=== PATIENT | female | born 1980 | race American Indian/Alaskan Native ===

== ENCOUNTER 2018-09-18 22:16 | Observation (INO) | payer OTHER ==
--- NOTE | 2018-09-18 23:29 | Emergency Department Report ---
ED General Adult HPI - General Chief complaint: Weakness Stated complaint: BLOOD LOW Time Seen by Provider: 09/18/18 23:17 Source: patient Mode of arrival: Ambulatory Limitations: No Limitations - History of Present Illness Initial comments: Patient is 37 years old female with no significant past medical history except for metrorrhagia. Patient presented to the emergency room complaining of generalized weakness for the last week. Patient stated that she's been having heavy periods. She went to her primary care physician today and he checked her hemoglobin and she was told that is 4.4 and advised to come to the emergency room. Patient denied any chest pain, shortness of breath or dizziness. Patient was admitted in February of last year for the same complaint found to have fibroids patient was to follow-up with his doctor son Donny but patient did not follow- up because of her father sickness. Severity scale (0 -10): 6 - Related Data Home Medications Medication Instructions Recorded Confirmed Last Taken No Known Home Medications [No 09/18/18 09/18/18 Unknown Reported Home Medications] Allergies Allergy/AdvReac Type Severity Reaction Status Date / Time No Known Allergies Allergy Unverified 10/05/13 10:20 ED Review of Systems ROS: Stated complaint: BLOOD LOW Other details as noted in HPI Comment: All other systems reviewed and negative Constitutional: denies: chills, fever Respiratory: denies: cough, orthopnea, shortness of breath, SOB with exertion, SOB at rest, wheezing Cardiovascular: denies: chest pain, palpitations Gastrointestinal: denies: abdominal pain, nausea, vomiting, diarrhea, constipation, hematemesis, melena, hematochezia Genitourinary: abnormal menses. denies: hematuria Neurological: weakness (generalized). denies: headache, numbness, paresthesias, confusion, abnormal gait ED Past Medical Hx - Past Medical History Previous Medical History?: Yes Hx Hypertension: No Hx CVA: No Hx Heart Attack/AMI: No Hx Congestive Heart Failure: No Hx Diabetes: No Hx Deep Vein Thrombosis: No Hx Pulmonary Embolism: No Hx GERD: No Hx Liver Disease: No Hx Renal Disease: No Hx of Cancer: No Hx Sickle Cell Disease: No Hx Arthritis: No Hx Headaches / Migraines: No Hx Seizures: No Hx Kidney Stones: No Hx Psychiatric Treatment: No Hx Asthma: No Hx COPD: No Hx Tuberculosis: No Hx Dementia: No Hx HIV: No Additional medical history: Anemia fibroids - Surgical History Past Surgical History?: Yes Hx Coronary Stent: No Hx Open Heart Surgery: No Hx Pacemaker: No Hx Internal Defibrillator: No Hx Cholecystectomy: No Hx Appendectomy: No Hx Breast Surgery: No Additional Surgical History: Tubal Ligation - Social History Smoking Status: Never Smoker Substance Use Type: None - Medications Home Medications: Home Medications Medication Instructions Recorded Confirmed Last Taken Type No Known Home Medications [No 09/18/18 09/18/18 Unknown History Reported Home Medications] ED Physical Exam - General Limitations: No Limitations General appearance: alert, in no apparent distress - Head Head exam: Present: atraumatic, normocephalic, normal inspection - Eye Eye exam: Present: normal appearance, other (pale) - ENT ENT exam: Present: normal exam, normal orophraynx, mucous membranes moist - Neck Neck exam: Present: normal inspection, full ROM. Absent: tenderness, meningismus, lymphadenopathy, thyromegaly - Respiratory Respiratory exam: Present: normal lung sounds bilaterally. Absent: respiratory distress, wheezes, rales, rhonchi, stridor, chest wall tenderness, accessory muscle use, decreased breath sounds, prolonged expiratory - Cardiovascular Cardiovascular Exam: Present: regular rate, normal rhythm, normal heart sounds - GI/Abdominal GI/Abdominal exam: Present: soft, normal bowel sounds. Absent: distended, tenderness, guarding, rebound, rigid, organomegaly, mass, bruit, pulsatile mass, hernia - Extremities Exam Extremities exam: Present: normal inspection, full ROM, normal capillary refill. Absent: tenderness, pedal edema, joint swelling, calf tenderness - Back Exam Back exam: Present: normal inspection, full ROM. Absent: tenderness, CVA tenderness (R), CVA tenderness (L), muscle spasm, paraspinal tenderness, vertebral tenderness - Neurological Exam Neurological exam: Present: alert, oriented X3, CN II-XII intact, normal gait, reflexes normal - Skin Skin exam: Present: warm, intact, normal color ED Course Vital Signs 09/18/18 09/18/18 09/18/18 22:25 22:30 23:28 Temperature 98.6 F 98.6 F Pulse Rate 77 79 77 Respiratory 16 18 10 L Rate Blood Pressure 122/40 122/40 Blood Pressure 122/40 [Right] O2 Sat by Pulse 100 100 99 Oximetry 09/18/18 09/18/1819 23:30 23:45 00:00 Temperature Pulse Rate 79 75 76 Respiratory 8 L 16 17 Rate Blood Pressure 112/53 112/56 99/47 Blood Pressure [Right] O2 Sat by Pulse 100 100 99 Oximetry 09/19/18 09/19/18 09/19/18 00:15 00:16 00:30 Temperature Pulse Rate 69 74 67 Respiratory 15 17 17 Rate Blood Pressure 100/46 100/46 102/42 Blood Pressure [Right] O2 Sat by Pulse 100 99 100 Oximetry 09/19/18 09/19/18 09/19/18 00:45 01:00 01:15 Temperature Pulse Rate 65 68 78 Respiratory 16 15 20 Rate Blood Pressure 105/41 94/40 86/42 Blood Pressure [Right] O2 Sat by Pulse 100 99 98 Oximetry 09/19/18 01:30 Temperature Pulse Rate 69 Respiratory 17 Rate Blood Pressure 88/42 Blood Pressure [Right] O2 Sat by Pulse 99 Oximetry ED Medical Decision Making - Lab Data Result diagrams: 09/18/18 22:59 09/18/18 22:59 - Medical Decision Making Patient found to have a hemoglobin of 6.5. I wrote for 1 unit of PRBC. I discussed the patient is Dr. Qiu, who agreed to admit the patient to Medical service Critical Care Time: Yes Critical care time in (mins) excluding proc time.: 30 Critical care attestation.: If time is entered above; I have spent that time in minutes in the direct care of this critically ill patient, excluding procedure time. ED Disposition Clinical Impression: Symptomatic anemia, Acute blood loss anemia, Abnormal uterine bleeding (AUB) Disposition: OP ADMIT IP TO THIS HOSP Is pt being admited?: Yes Condition: Stable
[2018-09-18 23:49] LABS: Partial Thromboplastin Time 29.7 Sec. (24.2-36.6)
[2018-09-18 23:58] LABS: BUN/Creatinine Ratio 14; Blood Urea Nitrogen 7 mg/dL (7-17); Calcium 8.6 mg/dL (8.4-10.2); Hemolysis Index 4
[2018-09-19 00:12] LABS: Mean Corpuscular HGB Conc 28 % (30-34); Platelet Count 525 K/mm3 (140-440); Red Blood Count 3.61 M/mm3 (3.65-5.03)
[2018-09-19 00:33] LABS: Hematocrit 23.3 % (30.3-42.9); Hemoglobin 6.5 gm/dl (10.1-14.3); Mean Corpuscular Volume 65 fl (79-97); Red Cell Distribution Width 24.6 % (13.2-15.2)
[2018-09-19] MEDS ORDERED: NACL 0.9% 500 ML 500 ML IV ONE (01:30)
[2018-09-19] MEDS ORDERED: TYLENOL PO PRN (02:41)
[2018-09-19] MEDS ORDERED: ZOFRAN IV PRN (02:41)
[2018-09-19] MEDS ORDERED: NACL 0.9% 500 ML 500 ML ONE (03:50)
--- NOTE | 2018-09-19 04:34 | History and Physical Report ---
CHIEF COMPLAINT: Weakness. HISTORY OF PRESENTING ILLNESS: The patient is a 37-year-old female who has past medical history of anemia, fibroid, and heavy menstrual bleeding, presenting with generalized weakness going on for about one week. The patient said that she has been having heavy periods during her menstrual cycle and went to her primary care doctor yesterday, being 09/18/2018. She was evaluated and told that her hemoglobin was as low as 4.4 and she was advised to come to the Emergency Room. There was no history of shortness of breath or dizziness. There was also no history of chest pain, nausea, or vomiting. The patient states she had similar symptom in February of 2017 and was told that she has fibroid and was asked to follow up with a table lever operator , but she states she has not been able to do so because of her father's sickness. The patient denies history of fever. PAST MEDICAL HISTORY: Pertinent for fibroid lesion. Also, the patient has past medical history of anemia and menorrhagia. PAST SURGICAL HISTORY: Pertinent for tubal ligation. FAMILY HISTORY: Noncontributory. SOCIAL HISTORY: The patient does not smoke, does not drink alcohol, and does not use illicit drugs. MEDICATIONS: The patient is not on any medication. ALLERGIES: There are no known drug allergies. REVIEW OF SYSTEMS: CONSTITUTIONAL: There is no fever, no chills, no diaphoresis. HEENT: There is no headache or sore throat. CARDIOVASCULAR SYSTEM: There is no chest pain or orthopnea. RESPIRATORY SYSTEM: There is no shortness of breath or cough. GASTROINTESTINAL SYSTEM: There is no nausea, no vomiting. No abdominal pain, diarrhea, or constipation. NEUROLOGICAL SYSTEM: There is no numbness, no dizziness, no altered mental status, but there is generalized weakness. MUSCULOSKELETAL SYSTEM: There is no joint pain or swelling. DERMATOLOGICAL SYSTEM: There is no skin rash or itching. GENITOURINARY SYSTEM: There is no dysuria, hematuria, or flank pain, but there is vaginal bleeding as part of the patient's menstrual bleeding, still going on currently. Rest of system review is normal. PHYSICAL EXAMINATION: GENERAL: At the time of exam, the patient was found to be alert, oriented x 3, and not in acute distress. VITAL SIGNS: Showed temperature of 98.6 degrees Fahrenheit, pulse of 77, respirations 16, blood pressure 122/40, O2 sat of 100% on room air. HEENT: Showed pupils to be equal, round, reactive to light and accommodation. Extraocular muscles were intact. NECK: Supple with no JVD or carotid bruit. CARDIOVASCULAR: Showed normal first and second heart sounds with no gallops or murmurs. RESPIRATORY SYSTEM: Showed good air entry on both sides of the lungs with no abnormal breath sounds. GASTROINTESTINAL SYSTEM: Showed abdomen to be full, soft, nontender with no organomegaly or rigidity. NEUROLOGICAL: Showed no focal deficits. MUSCULOSKELETAL SYSTEM: Showed no joint swelling or tenderness. DERMATOLOGICAL SYSTEM: Showing no skin rash. GENITOURINARY SYSTEM: Showing no costovertebral angle tenderness. PERTINENT LABORATORY AND IMAGING STUDIES: The patient did not have any imaging studies done at this time. Lab results show CBC with normal white count, low hemoglobin of 6.5, and low hematocrit of 23.3 with low MCV of 65 and elevated RDW of 26.6 and elevated platelet count of 525. The patient's coagulation studies were unremarkable. Chemistry showed low potassium of 3.2, otherwise rest of chemistry was unremarkable. DIAGNOSES: 1. Anemia. 2. Menorrhagia. PLAN OF ACTION: 1. The patient will be placed on observation in the medical ambrocio. 2. The patient will have gynecological consult with Dr. Grayson Smith for management of menorrhagia and secondary anemia. 3. The patient will have additional transfusion of 1 unit of blood to the one that is currently going on in the Emergency Room. 4. The patient will be on Tylenol 650 mg by mouth every 4 hours as needed for fever and headache. 5. The patient will have post transfusion H and H done. 6. The patient will be on IV Zofran 4 mg every 8 hours as needed for nausea and vomiting. 7. The patient's DVT prophylaxis will be through sequential compressive device. 8. The patient's diet will be regular diet. JOB# [id number] OCN/NTS JAMSHIDD
[2018-09-19 05:28] LABS: Anisocytosis 1+; Eosinophils % (Manual) 0 % (0.0-4.3); Hypochromasia 2+; Large Platelets Few; Total Cells Counted 100
[2018-09-19 05:29] LABS: Ovalocytes Few; Platelet Estimate Appears Increased
[2018-09-19 08:12] LABS: Hematocrit 28.6 % (30.3-42.9); Hemoglobin 8.7 gm/dl (10.1-14.3)
--- NOTE | 2018-09-19 13:43 | Ultrasound Report ---
ULTRASOUND PELVIC COMPLETE History: Vaginal bleeding. Technique: Transabdominal ultrasound with color Doppler interrogation. Findings: The uterus is anteverted and mildly enlarged. The uterus measures 13.5 x 8.9 x 8.4 cm. A large submucosal fibroid in the anterior wall measures 6.0 x 5.1 x 5.3 cm. The endometrial stripe is displaced posteriorly and appears to measure 11 mm. No obvious endometrial mass or fluid collection. The cervix is partially obscured. The ovaries are normal size, contour and echotexture. No adnexal cyst or mass. No pelvic fluid collection. IMPRESSION: Large submucosal uterine fibroid in the anterior wall as described. No significant change is demonstrated since 03/20/18.
--- NOTE | 2018-09-19 14:46 | Consultation ---
History of Present Illness Consult date: 09/19/18 Requesting physician: KARLY GIMENEZ Reason for consult: menorrhagia, pelvic mass History of present illness: Pt is a 37yo BF LMP 09/16/18 with no significant past medical history except for metrorrhagia and uterine fibroids. She presented to the emergency room complaining of generalized weakness for the last week after having prolonged heavy vaginal bleeding. She went to her primary care physician and he checked her hemoglobin and she was told that is 4.4 and advised her to come to the emergency room. She denied any chest pain, shortness of breath or dizziness. She was admitted in February of last year for the same complaint found to have uterine fibroids but she did not follow-up because of her father sickness. Today her pelvic u/s showed the uterus measured 13.5 x 8.9 x 8.4cm with a large anterior wall fibroid 6.0 x 5.1 x 5.3cm. She has since been transfused and is feeling much better with her H/H improving from 6.5/23.3 to 8.7/28.6 I have been consulted to further evaluate her uterine fibroids. 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 Family/Genetic History: none Social history: no significant social history, single - Obstetrical History : 2 Medications and Allergies Allergies Allergy/AdvReac Type Severity Reaction Status Date / Time No Known Allergies Allergy Unverified 10/05/13 10:20 Home Medications Medication Instructions Recorded Confirmed Last Taken Type No Known Home Medications [No 09/18/18 09/18/18 Unknown History Reported Home Medications] Active Meds: Active Medications Acetaminophen (Tylenol) 650 mg PO Q4H PRN PRN Reason: Fever >101 Ondansetron HCl (Zofran) 4 mg IV Q8H PRN PRN Reason: Nausea And Vomiting Review of Systems All systems: negative - Vital Signs Vital signs: Vital Signs Temp Pulse Resp BP Pulse Ox 98.6 F 77 16 122/40 100 09/18/18 22:25 09/18/18 22:25 09/18/18 22:25 09/18/18 22:25 09/18/18 22:25 Temp Pulse Resp BP Pulse Ox 98.7 F 77 18 104/33 100 09/19/18 11:42 09/19/18 11:42 09/19/18 11:42 09/19/18 11:42 09/19/18 11:42 - Physical Exam Breasts: Positive: deferred Abdomen: Positive: normal appearance, soft Uterus: Positive: enlarged Results Result Diagrams: 09/19/18 08:03 09/18/18 22:59 Abnormal lab results 09/18/18 09/18/18 09/18/18 Range/Units 22:59 22:59 22:59 RBC 3.61 L (3.65-5.03) M/mm3 Hgb 6.5 L (10.1-14.3) gm/dl Hct 23.3 L (30.3-42.9) % MCV 65 L (79-97) fl MCH 18 L (28-32) pg MCHC 28 L (30-34) % RDW 24.6 H (13.2-15.2) % Plt Count 525 H (140-440) K/mm3 Potassium 3.2 L (3.6-5.0) mmol/L Creatinine 0.5 L (0.7-1.2) mg/dL Crossmatch See Detail 09/19/18 Range/Units 08:03 RBC (3.65-5.03) M/mm3 Hgb 8.7 L (10.1-14.3) gm/dl Hct 28.6 L (30.3-42.9) % MCV (79-97) fl MCH (28-32) pg MCHC (30-34) % RDW (13.2-15.2) % Plt Count (140-440) K/mm3 Potassium (3.6-5.0) mmol/L Creatinine (0.7-1.2) mg/dL Crossmatch All other labs normal. Ultrasound: report reviewed Assessment and Plan - Patient Problems (1) Symptomatic anemia Onset Date: 09/19/18 Current Visit: Yes Status: Acute Plan to address problem: A: Symptomatic anemia - most likely due to menorrhagia Menorrhagia - most likely due to uterine fibroids Uterine fibroids P: Agree with admission for blood transfusion Discussed several treatment options with pt She will follow up in the office for a Pap, endometrial biopsy and possib le Myomectomy Follow up in the office in 1 week after discharge (2) Uterine fibroid Onset Date: 09/19/18 Current Visit: No Status: Chronic Qualifiers: Uterine leiomyoma location: intramural and submucous Qualified Code(s): D25.1 - Intramural leiomyoma of uterus; D25.0 - Submucous leiomyoma of uterus (3) Menorrhagia Onset Date: 09/19/18 Current Visit: No Status: Chronic
[2018-09-20 17:16] VITALS: BP 101/52
--- NOTE | 2018-09-20 17:52 | Discharge Summary ---
Providers - Providers Date of Admission: 09/19/18 02:33 Attending physician: KARLY GIMENEZ MD 09/19/18 06:35 Consult to Physician [CONS] Routine Comment: Consulting Provider: UMANG LEWIS Physician Instructions: Reason For Exam: MENORRHAGIA WITH SECONDARY ANEMIA Primary care physician: BETTINA ORTEGA Hospitalization Condition: Stable Hospital course: 37F who pw generalized weakness and menorrhagia. -she was admitted and transfused 2 units prbc, and given iron supplement -she was seen by [facility] [employer] [facility] , for uterine fibroids , is to fup with them outpatient for a Pap, endometrial biopsy and possible Myomectomy Diagnosis acute blood loss Symptomatic anemia Uterine fibroid Menorrhagia Disposition: TO HOME OR SELFCARE Time spent for discharge: 33 mins Core Measure Documentation - Palliative Care Palliative Care/ Comfort Measures: Not Applicable - Core Measures Any of the following diagnoses?: none Exam - Constitutional Vitals: Temp Pulse Resp BP Pulse Ox 98.6 F 69 18 101/52 99 09/20/18 16:56 09/20/18 16:56 09/20/18 16:56 09/20/18 16:56 09/20/18 16:56 General appearance: Present: no acute distress, well-nourished - EENT Eyes: Present: PERRL ENT: hearing intact, clear oral mucosa - Neck Neck: Present: supple, normal ROM - Respiratory Respiratory effort: normal Respiratory: bilateral: CTA - Cardiovascular Heart Sounds: Present: S1 & S2. Absent: rub, click - Extremities Extremities: pulses symmetrical, No edema Peripheral Pulses: within normal limits - Abdominal General gastrointestinal: Present: soft, non-tender, non-distended, normal bowel sounds Female genitourinary: Present: normal - Integumentary Integumentary: Present: clear, warm, dry - Musculoskeletal Musculoskeletal: gait normal, strength equal bilaterally - Psychiatric Psychiatric: appropriate mood/affect, intact judgment & insight - Neurologic Neurologic: CNII-XII intact, moves all extremities Plan Follow up with: BETTINA ORTEGA DO [Primary Care Provider] - 3-5 Days Prescriptions: Ferrous Gluconate 324 mg PO DAILY #30 tablet
== END 2018-09-20 18:48 | disposition home or self-care (01) ==
LOC: ED 22:16 → 3A 09-19 02:33
PROVIDERS: ADMIT Internal Medicine; ATTEND Internal Medicine
DX: D62 Acute posthemorrhagic anemia (principal); D64.9 Anemia, unspecified; N93.8 Other specified abnormal uterine and vaginal bleeding; N92.0 Excessive and frequent menstruation with regular cycle; D25.9 Leiomyoma of uterus, unspecified
CPT/HCPCS: 36415; 36430; 76856; 80048; 84703; 85007; 85018; 85025; 85610; 85730; 86850; 86900; 86901; 86920; 99291; 99406; G0378; J7040; P9016

== ENCOUNTER 2019-02-16 18:46 | Emergency (ER) | payer OTHER ==
[2019-02-16] MEDS ORDERED: ZOFRAN IV ONE (18:56)
[2019-02-16 19:00] VITALS: BP 118/82
--- NOTE | 2019-02-16 19:02 | Event Note ---
ED Screening Note Date of service: 02/16/19 Time: 19:00 ED Screening Note: 38 y/o female comes in for pelvic pain. History of fibroids and vaginal bleeding. This initial assessment/diagnostic orders/clinical plan/treatment(s) is/are subject to change based on patients health status, clinical progression and re- assessment by fellow clinical providers in the ED. Further treatment and workup at subsequent clinical providers discretion. Patient/guardian urged not to elope from the ED as their condition may be serious if not clinically assessed and managed. Initial orders include: <PAXTON YANES - Last Filed: 02/16/19 18:56> ED Screening Note: A physician and/or other qualified medical personnel has recommended that the patient receive further examination and/or treatment beyond their Medical Screening Exam. The risks and benefits were explained. The patient was informed of their right to emergency care. Patient left before final disposition of their medical condition. This note has been generated by me, Dr. Jean Xiao III, MD, the [facility] for the emergency department. I have not seen this patient personally. <JEAN XIAO - Last Filed: 02/21/19 08:48>
== END 2019-02-16 19:08 | disposition left against medical advice (07) ==
LOC: ED 18:46
DX: R10.2 Pelvic and perineal pain (principal); Z98.51 Tubal ligation status
CPT/HCPCS: 99281

== ENCOUNTER 2019-03-08 16:32 | Emergency (ER) | payer OTHER ==
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
[2019-03-08] MEDS ORDERED: AUGMENTIN 875 MG PO ONE (18:56)
[2019-03-08] MEDS ORDERED: ULTRAM PO ONE (18:56)
[2019-03-08] MEDS ORDERED: BOOSTRIX IM ONE (18:56)
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
[2019-03-08 20:13] VITALS: BP 117/63
== END 2019-03-08 20:05 | disposition home or self-care (01) ==
LOC: ED 16:32
DX: S61.451A Open bite of right hand, initial encounter (principal); Z21 Asymptomatic human immunodeficiency virus [HIV] infection status; Z98.51 Tubal ligation status; W50.3XXA Accidental bite by another person, initial encounter; Y93.89 Activity, other specified; Y92.098 Other place in other non-institutional residence as the place of occurrence of the external cause; Y99.8 Other external cause status
CPT/HCPCS: 90471; 90715

== ENCOUNTER 2021-07-11 20:33 | Emergency (ER) | payer OTHER ==
--- NOTE | 2021-07-11 23:34 | Emergency Department Report ---
ED General Adult HPI - General Chief complaint: Dizziness Stated complaint: SENT PCP Time Seen by Provider: 07/11/21 23:01 Source: patient Mode of arrival: Ambulatory Limitations: No Limitations - History of Present Illness Initial comments: Patient 40-year-old female with history of chronic anemia due to fibroids. States she called her PCP today and was advised to come in the ED for blood transfusion. Patient states history of just blood transfusion 1-2 times a year related to anemia secondary to heavy menses associated with fibroids. 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 However has not had fibroidectomy planning to do procedure in coming year. Patient states feeling of fatigue, denies shortness of breath, intermittent dizziness, there is no nausea vomiting or shortness of breath. Patient currently not on supportive therapies. Last menstrual period 3 weeks ago - Related Data Previous Rx's Medication Instructions Recorded Last Taken Type Ferrous Gluconate [Ferrous 324 mg PO DAILY #30 tablet 09/20/18 Unknown Rx Gluconate 324 MG] Amoxicillin/Potassium Clav 1 each PO BID 10 Days #20 tablet 03/08/19 Unknown Rx [Augmentin 875-125 Tablet] Dolutegravir [Tivicay] 50 mg PO DAILY #30 tablet 03/08/19 Unknown Rx Emtricitabine/Tenofovir (Tdf) 2 each PO DAILY #60 tablet 03/08/19 Unknown Rx [Truvada 100 mg-150 mg Tablet] Neomycn/Bacitrc/Polymyx/Pramox 1 applicatio TP BID 10 Days #1 tube 03/08/19 Unknown Rx [Neosporin + Pain Relief Oint] traMADoL [Ultram] 50 mg PO Q6HR PRN #12 tablet 03/08/19 Unknown Rx Allergies Allergy/AdvReac Type Severity Reaction Status Date / Time No Known Allergies Allergy Unverified 10/05/13 10:20 ED Review of Systems ROS: Stated complaint: SENT PCP Other details as noted in HPI Constitutional: denies: chills, fever Eyes: denies: eye pain, eye discharge, vision change ENT: denies: ear pain, throat pain Respiratory: denies: cough, shortness of breath, wheezing Cardiovascular: denies: chest pain, palpitations Endocrine: no symptoms reported Gastrointestinal: denies: abdominal pain, nausea, vomiting, diarrhea Genitourinary: abnormal menses. denies: urgency, dysuria, frequency, hematuria, discharge Musculoskeletal: denies: back pain, joint swelling, arthralgia Skin: denies: rash, lesions Neurological: weakness, vertigo. denies: headache Psychiatric: denies: anxiety, depression Hematological/Lymphatic: denies: easy bleeding, easy bruising ED Past Medical Hx - Past Medical History Previous Medical History?: Yes Hx Hypertension: No Hx CVA: No Hx Heart Attack/AMI: No Hx Congestive Heart Failure: No Hx Diabetes: No Hx Deep Vein Thrombosis: No Hx Pulmonary Embolism: No Hx GERD: No Hx Liver Disease: No Hx Renal Disease: No Hx Sickle Cell Disease: No Hx Arthritis: No Hx Headaches / Migraines: No Hx Seizures: No Hx Kidney Stones: No Hx Psychiatric Treatment: No Hx Asthma: No Hx COPD: No Hx Tuberculosis: No Hx Dementia: No Hx HIV: No Additional medical history: Anemia fibroids - Surgical History Past Surgical History?: Yes Hx Coronary Stent: No Hx Open Heart Surgery: No Hx Pacemaker: No Hx Internal Defibrillator: No Hx Cholecystectomy: No Hx Appendectomy: No Hx Breast Surgery: No Additional Surgical History: Tubal Ligation - Social History Smoking Status: Never Smoker Substance Use Type: Alcohol - Medications Home Medications: Home Medications Medication Instructions Recorded Confirmed Last Taken Type Ferrous Gluconate [Ferrous 324 mg PO DAILY #30 tablet 09/20/18 Unknown Rx Gluconate 324 MG] Amoxicillin/Potassium Clav 1 each PO BID 10 Days #20 tablet 03/08/19 Unknown Rx [Augmentin 875-125 Tablet] Dolutegravir [Tivicay] 50 mg PO DAILY #30 tablet 03/08/19 Unknown Rx Emtricitabine/Tenofovir (Tdf) 2 each PO DAILY #60 tablet 03/08/19 Unknown Rx [Truvada 100 mg-150 mg Tablet] Neomycn/Bacitrc/Polymyx/Pramox 1 applicatio TP BID 10 Days #1 tube 03/08/19 Unknown Rx [Neosporin + Pain Relief Oint] traMADoL [Ultram] 50 mg PO Q6HR PRN #12 tablet 03/08/19 Unknown Rx ED Physical Exam - General Limitations: No Limitations General appearance: alert, in no apparent distress - Head Head exam: Present: normocephalic, normal inspection - Eye Eye exam: Present: normal appearance, PERRL, EOMI. Absent: conjunctival injection, nystagmus Pupils: Present: normal accommodation - ENT ENT exam: Present: normal orophraynx, mucous membranes moist - Neck Neck exam: Present: normal inspection, full ROM. Absent: tenderness - Respiratory Respiratory exam: Present: normal lung sounds bilaterally. Absent: respiratory distress, wheezes, stridor - Cardiovascular Cardiovascular Exam: Present: regular rate, normal rhythm, normal heart sounds. Absent: systolic murmur, diastolic murmur, rubs, gallop - GI/Abdominal GI/Abdominal exam: Present: soft, normal bowel sounds. Absent: distended, tenderness, guarding, rebound, rigid, bruit, hernia - Rectal Rectal exam: Present: deferred - External exam: Present: other (deferred ) - Extremities Exam Extremities exam: Present: full ROM, normal capillary refill. Absent: tenderness - Back Exam Back exam: Present: normal inspection, full ROM. Absent: CVA tenderness (R), CVA tenderness (L) - Neurological Exam Neurological exam: Present: alert, oriented X3, CN II-XII intact, normal gait - Expanded Neurological Exam Expanded Patient oriented to: Present: person, place, time Best Eye Response ([place]): (4) open spontaneously Best Motor Response ([place]): (6) obeys commands Best Verbal Response ([place]): (5) oriented [place] Total: 15 - Psychiatric Psychiatric exam: Present: normal affect, normal mood - Skin Skin exam: Present: warm, dry, intact, normal color. Absent: rash ED Course Vital Signs 07/11/21 07/12/21 21:36 00:20 Temperature 98.2 F 98.3 F Pulse Rate 83 61 Respiratory 18 16 Rate Blood Pressure 133/57 Blood Pressure 124/46 [Left] O2 Sat by Pulse 98 100 Oximetry ED Medical Decision Making - Lab Data Result diagrams: 07/11/21 23:10 07/11/21 23:10 Labs 07/11/21 07/11/21 07/11/21 23:10 23:10 23:10 WBC 7.5 RBC 4.02 Hgb 7.5 L Hct 26.8 L MCV 67 L MCH 19 L MCHC 28 L RDW 25.7 H Plt Count 378 Add Manual Diff Complete Total Counted 100 Seg Neuts % (Manual) 47.0 Lymphocytes % (Manual) 42.0 H Monocytes % (Manual) 5.0 Eosinophils % (Manual) 6.0 H Nucleated RBC % Not Reportable Seg Neutrophils # Man 3.5 Band Neutrophils # 0.0 Lymphocytes # (Manual) 3.2 Abs React Lymphs (Man) 0.0 Monocytes # (Manual) 0.4 Eosinophils # (Manual) 0.5 H Basophils # (Manual) 0.0 Metamyelocytes # 0.0 Myelocytes # 0.0 Promyelocytes # 0.0 Blast Cells # 0.0 WBC Morphology Not Reportable Hypersegmented Neuts Not Reportable Hyposegmented Neuts Not Reportable Hypogranular Neuts Not Reportable Smudge Cells Not Reportable Toxic Granulation Not Reportable Toxic Vacuolation Not Reportable Dohle Bodies Not Reportable Pelger-Huet Anomaly Not Reportable [place] Rods Not Reportable Platelet Estimate Consistent w auto Clumped Platelets Not Reportable Plt Clumps, EDTA Not Reportable Large Platelets Few Giant Platelets Not Reportable Platelet Satelliting Not Reportable Plt Morphology Comment Not Reportable RBC Morphology Not Reportable Dimorphic RBCs Not Reportable Polychromasia Not Reportable Hypochromasia 2+ Poikilocytosis Not Reportable Anisocytosis 1+ Microcytosis 2+ Macrocytosis Not Reportable Spherocytes Rare Pappenheimer Bodies Not Reportable Sickle Cells Not Reportable Target Cells Not Reportable Tear Drop Cells Not Reportable Ovalocytes 1+ Helmet Cells Not Reportable De La Cruz-Isle[place] Bodies Not Reportable Kelley Rings Not Reportable Zoey Cells Not Reportable Bite Cells Not Reportable Crenated Cell Not Reportable Elliptocytes Few Acanthocytes (Spur) Not Reportable Rouleaux Not Reportable Hemoglobin C Crystals Not Reportable Schistocytes Rare Malaria parasites Not Reportable Gene Bodies Not Reportable Hem Pathologist Commnt No Sodium 139 Potassium 3.5 L Chloride 105.3 Carbon Dioxide 22 Anion Gap 15 BUN 7 Creatinine 0.7 Estimated GFR > 60 BUN/Creatinine Ratio 10 Glucose 107 H Calcium 9.0 Urine Color Urine Turbidity Urine pH Ur Specific [place] Urine Protein Urine Glucose (UA) Urine Ketones Urine Blood Urine Nitrite Ur Reducing Substances Urine Bilirubin Urine Ictotest Urine Urobilinogen Ur Leukocyte Esterase Urine WBC (Auto) Urine RBC (Auto) U Epithel Cells (Auto) Urine Bacteria (Auto) Urine Mucus Urine HCG, Qual Blood Type O POSITIVE Antibody Screen Negative 07/11/21 23:34 WBC RBC Hgb Hct MCV MCH MCHC RDW Plt Count Add Manual Diff Total Counted Seg Neuts % (Manual) Lymphocytes % (Manual) Monocytes % (Manual) Eosinophils % (Manual) Nucleated RBC % Seg Neutrophils # Man Band Neutrophils # Lymphocytes # (Manual) Abs React Lymphs (Man) Monocytes # (Manual) Eosinophils # (Manual) Basophils # (Manual) Metamyelocytes # Myelocytes # Promyelocytes # Blast Cells # WBC Morphology Hypersegmented Neuts Hyposegmented Neuts Hypogranular Neuts Smudge Cells Toxic Granulation Toxic Vacuolation Dohle Bodies Pelger-Huet Anomaly [place] Rods Platelet Estimate Clumped Platelets Plt Clumps, EDTA Large Platelets Giant Platelets Platelet Satelliting Plt Morphology Comment RBC Morphology Dimorphic RBCs Polychromasia Hypochromasia Poikilocytosis Anisocytosis Microcytosis Macrocytosis Spherocytes Pappenheimer Bodies Sickle Cells Target Cells Tear Drop Cells Ovalocytes Helmet Cells De La Cruz-Is[place] Bodies Kelley Rings Zoey Cells Bite Cells Crenated Cell Elliptocytes Acanthocytes (Spur) Rouleaux Hemoglobin C Crystals Schistocytes Malaria parasites Gene Bodies Hem Pathologist Commnt Sodium Potassium Chloride Carbon Dioxide Anion Gap BUN Creatinine Estimated GFR BUN/Creatinine Ratio Glucose Calcium Urine Color Yellow Urine Turbidity Clear Urine pH 6.0 Ur Specific [place] 1.017 Urine Protein <15 mg/dl Urine Glucose (UA) Neg Urine Ketones Neg Urine Blood Neg Urine Nitrite Neg Ur Reducing Substances Not Reportable Urine Bilirubin Neg Urine Ictotest Not Reportable Urine Urobilinogen 2.0 Ur Leukocyte Esterase Neg Urine WBC (Auto) 1.0 Urine RBC (Auto) 1.0 U Epithel Cells (Auto) 5.0 Urine Bacteria (Auto) 1+ Urine Mucus Few Urine HCG, Qual Negative Blood Type Antibody Screen - Medical Decision Making H&H noted above 7.6 and 26.8. Plan DC to home, follow-up with Dr. Silver today. Take prescriptions as ordered by your primary care doctor. Return to emergency department should symptoms worsen. Patient is currently alert oriented x3 vital signs are normal O2 sat is 90% on room air heart rate is 67 bpm. Patient is with no acute distress. Patient DC'd home in stable condition at this time. There is no chest pain, no shortness of breath, no nausea vomiting, no tachycardia, no dizziness or lightheadedness. Critical care attestation.: If time is entered above; I have spent that time in minutes in the direct care of this critically ill patient, excluding procedure time. ED Disposition Clinical Impression: Chronic anemia Disposition: HOME / SELF CARE / HOMELESS Is pt being admited?: No Does the pt Need Aspirin: No Condition: Stable Instructions: Dysfunctional Uterine Bleeding, Uterine Fibroids Additional Instructions: Take all medications as prescribed, follow-up with Dr. Rosette Hughes tomorrow. Referrals: LIZ SCHULTZ NP-C [Primary Care Provider] - 2-3 Days Forms: Work/School Release Form(ED) Time of Disposition: 02:55
[2021-07-11 23:57] LABS: Blood Urea Nitrogen 7 mg/dL (7-17); Hemolysis Index 6
[2021-07-11 23:58] LABS: BUN/Creatinine Ratio 10
[2021-07-12 00:15] LABS: HCG Qualitative,Urine Negative (Negative)
[2021-07-12 00:15] LABS: Mean Corpuscular HGB Conc 28 % (30-34); Platelet Count 378 K/mm3 (140-440); Red Blood Count 4.02 M/mm3 (3.65-5.03)
[2021-07-12 00:16] LABS: Bacteria,Urine 1+ /HPF (Negative); Bilirubin,Urine NEG (Negative); Blood,Urine NEG (Negative); Color,Urine Yellow (Yellow); Mucus,Urine FEW /HPF; Protein,Urine <15 mg/dL mg/dL (Negative)
[2021-07-12 00:22] VITALS: BP 124/46
[2021-07-12 00:23] LABS: Hematocrit 26.8 % (30.3-42.9); Hemoglobin 7.5 gm/dl (10.1-14.3); Mean Corpuscular Volume 67 fl (79-97); Red Cell Distribution Width 25.7 % (13.2-15.2)
[2021-07-12 02:25] LABS: Total Cells Counted 100
[2021-07-12 02:26] LABS: Anisocytosis 1+; Hypochromasia 2+; Schistocytes Rare; Spherocytes Rare
[2021-07-12 02:27] LABS: Large Platelets Few; Ovalocytes 1+; Platelet Estimate Consistent w Auto
== END 2021-07-12 03:26 | disposition home or self-care (01) ==
LOC: ED 20:33
DX: D64.9 Anemia, unspecified (principal); Z79.899 Other long term (current) drug therapy
CPT/HCPCS: 36415; 80048; 81001; 81025; 85007; 85025; 86850; 86900; 86901; 99283